=== PATIENT | male | born 1960 | race Caucasian/White ===

== ENCOUNTER 2024-12-31 06:52 | Day surgery (SDC) | payer OTHER ==
[2024-12-31] MEDS: Ringers Lactate 1,000 ML IV ONE (07:40)
[2024-12-31] MEDS ORDERED: LIDOCAINE 1% MPF 5 ML VIAL ONE (07:44)
[2024-12-31] MEDS ORDERED: FENTANYL CITR 100 MCG/2 ML ONE (07:44)
[2024-12-31] MEDS ORDERED: SIMETHICONE 40 MG/ 0.6 ML ONE (09:30)
[2024-12-31 09:59] VITALS: O2SAT 97
[2024-12-31 10:54] VITALS: BP 136/69; TEMP 98.6
== END 2024-12-31 10:33 | disposition home or self-care (01) ==
LOC: OR 06:52
PROVIDERS: ATTEND Surgery
PROC: 0DBN8ZX Excision of Sigmoid Colon, Via Natural or Artificial Opening Endoscopic, Diagnostic (ICD-10-PCS; principal; 2024-12-31 08:45)
DX: Z12.11 Encounter for screening for malignant neoplasm of colon (principal); N42.9 Disorder of prostate, unspecified; K57.30 Diverticulosis of large intestine without perforation or abscess without bleeding; K64.8 Other hemorrhoids; K63.5 Polyp of colon
CPT/HCPCS: 93005; 88305; 45380; J2704; J2003; J7120; J3010

== ENCOUNTER 2025-01-18 01:26 | Emergency (ER) | payer OTHER ==
[2025-01-18] MEDS ORDERED: ONDANSETRON 4 MG/2 ML VIAL ONE (01:52)
[2025-01-18] MEDS ORDERED: MORPHINE 4 MG/ML SYR ONE (01:54)
[2025-01-18] MEDS ORDERED: BISACODYL 10 MG RECTAL SUPP ONE (02:02)
[2025-01-18] MEDS ORDERED: LACTULOSE 20 GM/30 ML UCUP ONE (02:03)
[2025-01-18] MEDS ORDERED: FAMOTIDINE 20 MG/2 ML VIAL IV ONE (02:03)
[2025-01-18] MEDS ORDERED: NA CHLORIDE 0.9% 1,000 ML ONE ×2 (02:06→03:34)
[2025-01-18] MEDS ORDERED: METOCLOPRAMIDE 10 MG/2mL INJ ONE (02:06)
[2025-01-18 02:15] LABS: Urine Microscopic Reflex YN NO UMIC
[2025-01-18 02:17] LABS: Absolute Lymphocytes (CBC) 0.7 K/uL (0.7-4.9); Hematocrit 43.3 % (39.6-49.0); Hemoglobin 15.2 g/dL (13.6-17.9); MCH 33.0 pg (27.0-35.0); MCHC 35.1 g/dL (32.0-36.0); MCV 93.9 fL (80-100); MPV 8.1 fL (7.6-11.3); Nucleated RBC Absolute Count 0.0 (0-0); Nucleated Red Blood Cells % 0.0 % (0-0); RBC Red Blood Cell Count 4.61 M/uL (4.33-5.43); White Blood Count 7.60 thou/uL (4.3-10.9)
[2025-01-18 02:26] LABS: ALT/SGPT 21.0 U/L (16-61); AST/SGOT 15.0 U/L (15-37); Albumin 4.1 g/dL (3.4-5.0); Albumin/Globulin Ratio 1.2 (1.1-1.8); Alkaline Phosphatase 67.0 U/L (45-117); Anion Gap 10.7 mEq/L (5.0-15.0); BUN Blood Urea Nitrogen 9.0 mg/dL (7-18); Globulin 3.4 g/dL (2.3-3.5); Glucose Level 126.0 mg/dL (74-106); Lipase 16.0 U/L (13-75); Magnesium 2.1 mg/dL (1.6-2.4); Potassium 3.7 mEq/L (3.5-5.1)
[2025-01-18] MEDS ORDERED: LORazepam 2 MG/ML VIAL ONE (03:26)
--- NOTE | 2025-01-18 04:40 | RAD REPORT ---
EXAM: CT Abdomen and Pelvis With Intravenous Contrast CLINICAL HISTORY: The patient is 64 years old and is Male; Constipation, abdominal pain. History HC C TECHNIQUE: Axial computed tomography images of the abdomen and pelvis with intravenous contrast. Sagittal and coronal reformatted images were created and reviewed. This CT exam was performed using one or more of the following dose reduction techniques: automated exposure control, adjustmen t of the mA and/or kV according to patient size, and/or use of iterative reconstruction technique. Oral contrast was administered. COMPARISON: MRI abdomen December 23, 2024. CT chest abdomen pelvis September 09, 2016 FINDINGS: Lung bases: Unremarkable. No mass. No consolidation. ABDOMEN: Liver: Slightly nodular liver contour suggesting hepatic cirrhosis. 2.0 cm hypodense anterior rig ht hepatic lobe. See MRI abdomen report December 23, 2024. Gallbladder and bile ducts: Unremarkable. No calcified stones. No ductal dilation. Pancreas: No findings to suggest acute pancreatitis. No mass visualized. No ductal dilation. Spleen: Unremarkable. No splenomegaly. Adrenals: Unremarkable. No mass. Kidneys and ureters: Unremarkable. No solid mass. No hydronephrosis. Stomach and bowel: Mildly increased stool. Colonic diverticulosis. No findings to suggest colitis or diverticulitis. No small bowel dilatation or obstruction. Stomach is not well distended. PELVIS: Appendix: No findings to suggest acute appendicitis. Bladder: Unremarkable. No mass. Reproductive: Unremarkable as visualized. ABDOMEN and PELVIS: Intraperitoneal space: Unremarkable. No free air. No significant fluid collection. Bones/joints: L5-S1 degenerative disc disease. No acute fracture visualized. No dislocation. Soft tissues: Unremarkable. Vasculature: Unremarkable. No abdominal aortic aneurysm. Lymph nodes: No pathologically enlarged lymph nodes. IMPRESSION: 1. Slightly nodular liver contour suggesting hepatic cirrhosis. 2.0 cm hypodense anterior right hep atic lobe. See MRI abdomen report December 23, 2024. 2. Mildly increased stool. Colonic diverticulosis. No findings to suggest colitis or diverticulitis . 3. Additional non-emergent findings as above. Electronically signed by: Desiree Espinoza MD 01/18/2025 04:36 AM CDT RP V2 Due to temporary technical issues with the PACS/[employer] reporting system, reports are being ferdinand d by the in-house radiologist without review as a courtesy to ensure prompt reporting the interpreting radiologist is fully responsible for the content of the report. Transcribed Date/Time: 01/18/2025 4:39 AM
--- NOTE | 2025-01-18 05:06 | ER ---
Nurse's Notes [facility] Name: Rigoberto Salazar Age: 64 yrs Sex: Male : 1960 Arrival Date: 01/18/2025 Time: 01:26 Bed 5 Private MD: Diagnosis: Nausea with vomiting, unspecified;Constipation, unspecified Presentation: 01/18 01:48 Chief complaint: Patient states: I HAVE BEEN HAVING DARK URINE, AND BAD CONSTIPATION kd3 FOR ABOUT 5 DAYS. I HAVE GIVEN MYSELF AN ENEMA AND I HAD A VERY SMALL BM. I AM HAVING LOWER ABDOMINAL PAIN, ABOUT A 6/10. I AM SUPER NAUSEOUS. Coronavirus screen: Vaccine status: Patient reports receiving the 2nd dose of the covid vaccine. Ebola Screen: No symptoms or risks identified at this time. Initial Sepsis Screen: Does the patient meet any 2 criteria? No. Patient's initial sepsis screen is negative. Does the patient have a suspected source of infection? No. Patient's initial sepsis screen is negative. Risk Assessment: Do you want to hurt yourself or someone else? Patient reports no desire to harm self or others. Onset of symptoms was January 13, 2025. 01:48 Method Of Arrival: Ambulatory kd3 01:48 Acuity: LOI 3 kd3 Triage Assessment: 01:52 General: Appears uncomfortable, Behavior is calm, cooperative. Pain: Complains of pain kd3 in right lower quadrant and left lower quadrant. GI: Reports lower abdominal pain. Historical: - PMHx: 01:52 chronic back pain; Hypertensive disorder; liver cancer; kd3 - Immunization history:: Adult Immunizations up to date. - Infectious Disease History:: Denies. - Social history:: Smoking status: Patient denies any tobacco usage or history of. Screenin:[facility] ED Fall Risk Assessment (Adult) History of falling in the last 3 months, kd3 including since admission No falls in past 3 months (0 pts) Confusion or Disorientation No (0 pts) Intoxicated or Sedated No (0 pts) Impaired Gait No (0 pts) Mobility Assist Device Used No (0 pt) Altered Elimination No (0 pt) Score/Fall Risk Level 0 - 2 = Low Risk Maintained a safe environment. Abuse screen: Denies threats or abuse. Denies injuries from another. Nutritional screening: No deficits noted. Tuberculosis screening: No symptoms or risk factors identified. Assessment: 01:53 General: Appears uncomfortable, Behavior is calm, cooperative. Pain: Complains of pain kd3 in left lower quadrant and right lower quadrant Pain currently is 6 out of 10 on a pain scale. Neuro: Level of Consciousness is awake, alert, obeys commands, Oriented to person, place, time, situation. Cardiovascular: Capillary refill < 3 seconds Patient's skin is warm and dry. GI: Abdomen is non-distended. 03:14 General: PT FINISHED HIS ORAL CONTRAST. APPEALS REFEREE NOTIFIED . kd3 04:22 General: Pt is independently ambulatory to the restroom and back. . kd3 04:51 Reassessment: Patient and/or family updated on plan of care and expected duration. Pain kd3 level reassessed. Patient is alert, oriented x 3, equal unlabored respirations, skin warm/dry/pink. Patient states feeling better. Patient states symptoms have improved. Vital Signs: 01:48 BP 157 / 99; Pulse 65; Resp 19; Temp 98.8(O); Pulse Ox 95% on R/A; Weight 83.91 kg; kd3 Height 6 ft. 0 in. ; Pain 6/10; 02:58 BP 135 / 76; Pulse 77; Resp 19; Pulse Ox 98% on R/A; kd3 03:26 BP 145 / 101; Pulse 69; Resp 18 S; Pulse Ox 97% on R/A; ha1 04:21 BP 150 / 76; Pulse 65; Resp 16; Pulse Ox 98% on R/A; kd3 01:48 Body Mass Index 25.09 (83.91 kg, 182.88 cm) kd3 01:48 Pain Scale: Adult kd3 ED Course: 01:31 Patient arrived in ED. gm2 01:33 Nikita Calvo PA-C is PHCP. cp 01:33 Nikita Norman MD is Attending Physician. cp 01:34 Kendy Encarnacion RN is Primary Nurse. kd3 01:52 Triage completed. kd3 01:52 Arm band placed on right wrist. kd3 01:53 Patient has correct armband on for positive identification. kd3 01:53 Inserted saline lock: 20 gauge in right antecubital area, using aseptic technique. kd3 Blood collected. Flushed with 10 mL NS. 01:53 No provider procedures requiring assistance completed. kd3 02:14 CBC with Diff Sent. kd3 02:14 CMP Sent. kd3 02:14 Lipase Sent. kd3 02:14 Magnesium Sent. kd3 02:14 UA Rfx Eleuterio Cult if indicated Sent. kd3 02:41 XRAY Chest (1 view) In Process Unspecified. EDMS 03:53 CT Abd/Pelvis - PO and IV Contrast In Process Unspecified. EDMS 05:15 IV discontinued, intact, bleeding controlled, No redness/swelling at site. Pressure ha1 dressing applied. 05:16 Provided Education on: follow ups . ha1 Administered Medications: 02:02 Drug: Ondansetron IVP 4 mg IVP once; over 2 minutes Route: IVP; Site: right antecubital;ha1 02:04 Drug: morphine IVP or IV 4 mg IVP once over 4 mins Route: IVP; Infused Over: 4 mins; ha1 Site: right antecubital; 02:20 Follow up: Response: No adverse reaction; Marked relief of symptoms; Pain is decreased; ha1 RASS: Alert and Calm (0) 02:14 Drug: Famotidine IVP 20 mg IVP once; dilute with 10 mL 0.9% NaCl; give over 2 minutes kd3 Route: IVP; Site: right antecubital; 02:14 Drug: NS 0.9% IV 1000 ml IV at 1 bolus Per protocol; to be given as a bolus over 90 kd3 minutes Route: IV; Rate: 1 bolus; Site: right antecubital; 02:14 Drug: Lactulose PO 30 grams 45 ml PO once Volume: 45 ml; Route: PO; kd3 03:30 Follow up: Response: No adverse reaction; Marked relief of symptoms ha1 02:14 Drug: Dulcolax ID Suppository 10 mg ID once Route: ID; kd3 03:00 Follow up: Response: No adverse reaction; Adverse reaction, Physician notified ha1 02:14 Drug: metoCLOPramide IVP 10 mg IVP once; over 1 to 2 minutes Route: IVP; Site: right kd3 antecubital; 03:00 Follow up: Response: No adverse reaction; Marked relief of symptoms; Nausea is decreasedha1 03:29 Drug: Ativan IVP 1 mg IVP once Route: IVP; Site: right antecubital; kd3 04:00 Follow up: Response: No adverse reaction; Marked relief of symptoms; Anxiety decreased ha1 03:48 Drug: NS 0.9% IV 1000 ml IV at 1 bolus Per protocol; to be given as a bolus over 60 kd3 minutes Route: IV; Rate: 1 bolus; Site: right antecubital; 05:15 Follow up: Response: No adverse reaction; IV Status: Completed infusion ha1 Medication: 01:53 VIS not applicable for this client. kd3 Outcome: 05:06 Discharge ordered by MD. carvajal 05:15 Discharged to home ambulatory, ha1 05:15 Condition: stable 05:15 Discharge instructions given to patient, Instructed on discharge instructions, follow up and referral plans. medication usage, Demonstrated understanding of instructions, follow-up care, medications, Prescriptions given X 2, 05:16 Patient left the ED. ha1 Signatures: Dispatcher [employer] EDMS Nikita Calvo, KEVIN PA-C Kendy Monique RN RN kd3 Geno Logan RN RN ha1 Tracey Metzger 2
--- NOTE | 2025-01-18 05:07 | EDPHYS ---
Physician Documentation [facility] Name: Rigoberto Salazar Age: 64 yrs Sex: Male : 1960 Arrival Date: 01/18/2025 Time: 01:26 Bed 5 Private MD: ED Physician Nikita Norman HPI: 01/18 01:55 This 64 yrs old Male presents to ER via Ambulatory with complaints of Nausea/Vomiting, cp Constipation, Urinary Problem. 01:55 The patient presents to the emergency department with nausea, that is moderate, cp vomiting, that is intermittent, abdominal pain, of the right lower quadrant and left lower quadrant, constipation. Associated signs and symptoms: Pertinent negatives: diarrhea, dysuria, fever, GI bleeding. 01:55 Onset: The symptoms/episode began/occurred 5 day(s) ago. cp 01:55 The symptoms are alleviated by nothing. Patient reports he is grieving recent passing cp of spouse, decreased fluid and food intake. Historical: - PMHx: 01:52 chronic back pain; Hypertensive disorder; liver cancer; kd3 - Immunization history:: Adult Immunizations up to date. - Infectious Disease History:: Denies. - Social history:: Smoking status: Patient denies any tobacco usage or history of. ROS: 02:00 Constitutional: Positive for poor PO intake, Negative for body aches, chills, fever, cp 02:00 Respiratory: Negative for cough, shortness of breath, wheezing, cp 02:00 Eyes: Negative for injury, pain, redness, and discharge, cp 02:00 ENT: Negative for drainage from ear(s), ear pain, sore throat, difficulty swallowing, cp difficulty handling secretions, 02:00 Abdomen/GI: Positive for abdominal pain, nausea, vomiting, constipation, 02:00 Neuro: Negative for altered mental status, 02:00 Psych: Positive for depression, Negative for suicide gesture, suicidal ideation, 02:00 All other systems are negative, Exam: 02:05 Constitutional: The patient appears in no acute distress, alert, awake, cp non-diaphoretic, non-toxic, well developed, well nourished, uncomfortable, 02:05 Head/Face: Normocephalic, atraumatic. cp 02:05 Eyes: Periorbital structures: appear normal, Conjunctiva: normal, no exudate, no injection, Sclera: no appreciated abnormality, Lids and lashes: appear normal, bilaterally, 02:05 ENT: External ear(s): are unremarkable, Nose: is normal, Mouth: Lips: dry, Oral mucosa: dry, Posterior pharynx: Airway: no evidence of obstruction, patent, swelling, is not appreciated, erythema, is not appreciated, 02:05 Chest/axilla: Inspection: normal, 02:05 Cardiovascular: Rate: normal, Rhythm: regular, 02:05 Respiratory: the patient does not display signs of respiratory distress, Respirations: normal, no use of accessory muscles, no retractions, labored breathing, is not present, Breath sounds: are clear throughout, no decreased breath sounds, no stridor, no wheezing, 02:05 Abdomen/GI: Inspection: abdomen appears normal, distension, is not seen, Bowel sounds: active, all quadrants, Palpation: soft, in all quadrants, moderate abdominal tenderness, in all quadrants, rebound tenderness, is not appreciated, involuntary guarding, is not appreciated, 02:05 Back: CVA tenderness, is absent, 02:05 Skin: cellulitis, is not appreciated, no rash present. 02:05 Neuro: Orientation: to person, place \T\ time. Mentation: is normal, Motor: moves all fours, strength is normal, Sensation: is normal, Gait: is steady, at a normal pace, without difficulty, 02:05 Psych: Behavior/mood is pleasant, cooperative, depressed, Judgement / Insight is normal. Delusions/hallucinations are not present. Vital Signs: 01:48 BP 157 / 99; Pulse 65; Resp 19; Temp 98.8(O); Pulse Ox 95% on R/A; Weight 83.91 kg; kd3 Height 6 ft. 0 in. ; Pain 6/10; 02:58 BP 135 / 76; Pulse 77; Resp 19; Pulse Ox 98% on R/A; kd3 03:26 BP 145 / 101; Pulse 69; Resp 18 S; Pulse Ox 97% on R/A; ha1 04:21 BP 150 / 76; Pulse 65; Resp 16; Pulse Ox 98% on R/A; kd3 01:48 Body Mass Index 25.09 (83.91 kg, 182.88 cm) kd3 01:48 Pain Scale: Adult kd3 MDM: 01:36 Medical Screening Exam initiated cp 05:05 Data reviewed: vital signs, nurses notes, lab test result(s), radiologic studies, CT cp scan. 05:05 I considered the following discharge prescriptions or medication management in the emergency department Medications were administered in the Emergency Department. See MAR. Care significantly affected by the following chronic conditions: Hypertension, Cancer. Counseling: I had a detailed discussion with the patient and/or guardian regarding the historical points, exam findings, and any diagnostic results supporting the discharge/admit diagnosis, lab results, radiology results, to return to the emergency department if symptoms worsen or persist or if there are any questions or concerns that arise at home. Response to treatment: the patient's symptoms have mildly improved after treatment, no large bowel movement observed. review of CT abdomen/pelvis negative for bowel obstruction, negative for fecal impaction. will treat with Golytely and monitor symptoms. 01/18 01:48 Order name: CBC with Diff; Complete Time: 02:36 cp 01/18 01:48 Order name: CMP; Complete Time: 02:36 cp 01/18 01:48 Order name: Lipase; Complete Time: 02:36 cp 01/18 01:48 Order name: Magnesium; Complete Time: 02:36 cp 01/18 01:48 Order name: UA Rfx Eleuterio Cult if indicated; Complete Time: 02:36 cp 01/18 01:48 Order name: XRAY Chest (1 view) 01/18 01:48 Order name: CT Abd/Pelvis - PO and IV Contrast 01/18 01:48 Order name: IV Saline Lock; Complete Time: 01:54 01/18 01:48 Order name: Labs collected and sent; Complete Time: 02:14 cp Administered Medications: 02:02 Drug: Ondansetron IVP 4 mg IVP once; over 2 minutes Route: IVP; Site: right antecubital;ha1 02:04 Drug: morphine IVP or IV 4 mg IVP once over 4 mins Route: IVP; Infused Over: 4 mins; ha1 Site: right antecubital; 02:20 Follow up: Response: No adverse reaction; Marked relief of symptoms; Pain is decreased; ha1 RASS: Alert and Calm (0) 02:14 Drug: Famotidine IVP 20 mg IVP once; dilute with 10 mL 0.9% NaCl; give over 2 minutes kd3 Route: IVP; Site: right antecubital; 02:14 Drug: NS 0.9% IV 1000 ml IV at 1 bolus Per protocol; to be given as a bolus over 90 kd3 minutes Route: IV; Rate: 1 bolus; Site: right antecubital; 02:14 Drug: Lactulose PO 30 grams 45 ml PO once Volume: 45 ml; Route: PO; kd3 03:30 Follow up: Response: No adverse reaction; Marked relief of symptoms ha1 02:14 Drug: Dulcolax IL Suppository 10 mg IL once Route: IL; kd3 03:00 Follow up: Response: No adverse reaction; Adverse reaction, Physician notified ha1 02:14 Drug: metoCLOPramide IVP 10 mg IVP once; over 1 to 2 minutes Route: IVP; Site: right kd3 antecubital; 03:00 Follow up: Response: No adverse reaction; Marked relief of symptoms; Nausea is decreasedha1 03:29 Drug: Ativan IVP 1 mg IVP once Route: IVP; Site: right antecubital; kd3 04:00 Follow up: Response: No adverse reaction; Marked relief of symptoms; Anxiety decreased ha1 03:48 Drug: NS 0.9% IV 1000 ml IV at 1 bolus Per protocol; to be given as a bolus over 60 kd3 minutes Route: IV; Rate: 1 bolus; Site: right antecubital; 05:15 Follow up: Response: No adverse reaction; IV Status: Completed infusion ha1 Disposition Summary: 01/18/25 05:06 Discharge Ordered Notes: Location: Home cp Problem: new cp Symptoms: have improved cp Condition: Stable cp Diagnosis - Nausea with vomiting, unspecified cp - Constipation, unspecified cp Followup: cp - With: Private Physician - When: 2 - 3 days - Reason: Worsening of condition Discharge Instructions: - Discharge Summary Sheet cp - Constipation, Adult cp - Nausea and Vomiting, Adult cp Forms: - Medication Reconciliation Form cp - Antibiotic Education cp - Prescription Opioid Use cp - Patient Portal Instructions cp - Leadership Thank You Letter cp Prescriptions: - Golytely [id number] -5.86 gram Oral Recon Soln - administer 240 milliliter ORAL route every 1 to 2 hours As needed until bowel cp movement; 4000 milliliter; Refills: 0, Product Selection Permitted - promethazine 25 mg Oral Tablet - take 1 tablet ORAL route every 6 hours As needed; 20 tablet; Refills: 0, cp Product Selection Permitted Addendum: 01/19/2025 07:50 Co-signature as Attending Physician, Nikita Norman MD I agree with the assessment and c stone plan of care. Signatures: Dispatcher [employer] EDNikita Solo MD MD cha Page, Corey, PA-C PA-C Kendy Monique, RN RN kd3 Geno Logan, RN RN ha1 Corrections: (The following items were deleted from the chart) 01/18 01:48 01:48 CBC+H.LAB.BRZ ordered. EDMS EDMS 01:48 01:48 COMPREHENSIVE METABOLIC PANEL+C.LAB.BRZ ordered. EDMS EDMS 01:48 01:48 LIPASE+C.LAB.BRZ ordered. EDMS EDMS 01:48 01:48 MAGNESIUM+C.LAB.BRZ ordered. EDMS EDMS 01:48 01:48 UA Rfx Eleuterio Cult if indicated+U.LAB.BRZ ordered. EDMS EDMS 01:49 01:49 Chest Single View+RAD.RAD.BRZ ordered. EDMS EDMS 01:49 01:49 Abdomen Pelvis W Con+CT.RAD.BRZ ordered. EDMS EDMS
--- NOTE | 2025-01-18 06:07 | RAD REPORT ---
EXAM: XR Chest, 1 View CLINICAL HISTORY: The patient is 64 years old and is Male; Nausea/vomiting. TECHNIQUE: Single view of the chest. COMPARISON: CT Chest 12/23/2024. FINDINGS: Lungs: No pulmonary vascular congestion or consolidation. Pleural space: Unremarkable. No pneumothorax. Heart: Unremarkable. No cardiomegaly. Mediastinum: Unremarkable. Bones/joints: No acute fracture. Upper abdomen: No free air in the visualized upper abdomen. IMPRESSION: No acute cardiopulmonary process identified. Electronically signed by: Desiree Espinoza MD 01/18/2025 04:31 AM CDT RP V2 Due to temporary technical issues with the PACS/[email or web address] reporting system, reports are being ferdinand d by the in-house radiologist without review as a courtesy to ensure prompt reporting the interpreting radiologist is fully responsible for the content of the report. Transcribed Date/Time: 01/18/2025 6:07 AM
[2025-01-18 15:01] VITALS: TEMP 98.8
[2025-01-18 15:06] VITALS: BP 150/76; O2SAT 98
== END 2025-01-18 05:16 | disposition home or self-care (01) ==
LOC: ER 01:26
DX: R11.2 Nausea with vomiting, unspecified (principal); K59.00 Constipation, unspecified
CPT/HCPCS: 96361; 85025; 36415; 83735; 81003; 83690; 80053; 74177; 71045; 96375; 96374; 99284; Q9967; J2765; J2405; J7030 ×2